=== PATIENT | female | born 2000 | race Caucasian/White ===

== ENCOUNTER 2021-02-01 13:11 | Emergency (ER) | payer BC ==
[~2021-02-01 13:11] MED LIST: NAPROSYN500 MG PO
== END 2021-02-01 15:01 | disposition home or self-care (01) ==
LOC: ER1 13:11
DX: Z32.01 Encounter for pregnancy test, result positive (principal); O99.331 Smoking (tobacco) complicating pregnancy, first trimester; F17.210 Nicotine dependence, cigarettes, uncomplicated
CPT/HCPCS: 84702; 99283

== ENCOUNTER 2021-02-14 09:07 | Emergency (ER) | payer BC ==
[2021-02-14 10:20] LABS: HEMOGLOBIN 13.7 gm/dl (12.3-15.3); RED BLOOD COUNT 4.52 M/UL (4.00-5.10); WHITE BLOOD COUNT 5.8 K/UL (4.5-11.0)
[2021-02-14 10:44] LABS: BUN/CREATININE RATIO 28 (0-10)
== END 2021-02-14 12:15 | disposition home or self-care (01) ==
LOC: ER1 09:07
PROVIDERS: Physician Assistant
DX: O03.9 Complete or unspecified spontaneous abortion without complication (principal); F17.200 Nicotine dependence, unspecified, uncomplicated; Z3A.08 8 weeks gestation of pregnancy
CPT/HCPCS: 76817; 80053; 84702; 85025; 86850; 86900; 86901; 99284

== ENCOUNTER 2022-01-28 22:40 | Emergency (ER) | payer BC, OTHER ==
[2022-01-28 23:49] LABS: HEMOGLOBIN 14.4 gm/dl (12.3-15.3); RED BLOOD COUNT 4.64 M/UL (4.00-5.10); WHITE BLOOD COUNT 11.1 K/UL (4.5-11.0)
[2022-01-29 00:14] LABS: BUN/CREATININE RATIO 24 (0-10)
== END 2022-01-29 03:03 | disposition left against medical advice (07) ==
LOC: ER1 22:40
PROVIDERS: Family Medicine
DX: R10.84 Generalized abdominal pain (principal); R11.2 Nausea with vomiting, unspecified
CPT/HCPCS: 76817; 80053; 81001; 83690; 84702; 84703; 85025; 87086; 96374; 99283; J2765